=== PATIENT | female | born 1995 | race Caucasian/White ===

== ENCOUNTER 2020-06-17 16:47 | Emergency (ER) | payer OTHER, SELFPAY ==
[2020-06-17 16:58] VITALS: BP 113/67; PULSE 99; RESP 16; TEMP 37.2; O2SAT 100
--- NOTE | 2020-06-17 17:14 | ED.HA ---
HPI - Headache General Chief Complaint: Headache Stated Complaint: Migraine Time Seen by Provider: 06/17/20 17:08 Source: patient and RN notes reviewed Mode of arrival: ambulatory Limitations: no limitations History of Present Illness HPI Narrative: Patient presents today complaining of a 5-day history of migraine. Located in the frontal and occipital areas describes the pain as constant and throbbing. Patient does have history of migraines and states these current symptoms are consistent with symptoms she has had in the past. States she used to take Topamax, but no longer does. She reports a bit of nausea for which she has been taking Zofran. States she was dizzy last night but none today. Reports photophobia, but denies vision changes. Currently rates her pain 8/10. She has been taking ibuprofen, sinus medicine, Claritin, naproxen without much relief. Patient also takes 15 mg of morphine twice daily for interstitial cystitis. MD elicited complaint: migraine Related Data Home Medications Medication Instructions Recorded Confirmed cholecalciferol (vitamin D3) 50 mcg PO DAILY 06/17/20 06/17/20 [Vitamin D3] diphenhydramine HCl [Unisom 50 mg PO HS 06/17/20 06/17/20 SleepGels] gabapentin 300 mg PO BID 06/17/20 06/17/20 morphine 15 mg PO BID 06/17/20 06/17/20 varenicline [Chantix] 1 mg PO BID 06/17/20 06/17/20 Allergies Allergy/AdvReac Type Severity Reaction Status Date / Time caffeine AdvReac Palpitation Verified 06/17/20 17:07 s Review of Systems Review of Systems: Narrative: CONSTITUTIONAL: Denies body aches, fever, chills, or sweats. EYES: Denies visual changes, redness, or discharge.+ Photophobia ENT: Denies rhinorrhea, congestion, sore throat, or otalgia. CARDIOVASCULAR: Denies chest pain, palpitations, or edema. RESPIRATORY: Denies cough or dyspnea. GASTROINTESTINAL: Denies abdominal pain, vomiting, or diarrhea. + Nausea GENITOURINARY: Denies dysuria or hematuria. SKIN: Denies rash, itching, or wounds. MUSCULOSKELETAL: Denies back pain, joint pain, or myalgia. NEUROLOGIC: Denies numbness, tingling, or weakness. + Migraine PSYCH: Denies depression or anxiety. [facility] Past Medical History Medical History (Updated 06/17/20 @ 17:29 by Madalyn Dickson, [employer], ) Endometriosis Interstitial cystitis Irritable bowel syndrome Surgical History Surgical History (Updated 06/17/20 @ 17:18 by Madalyn Dickson, [facility], ) History of oophorectomy Comments At time of signature, I have reviewed and agree with nursing past medical, surgical, social and family history unless otherwise noted. Please see nursing chart for further information. There is no relevant family history pertinent to the presenting complaint Exam Narrative: Exam Narrative: GENERAL: Chronically ill-appearing, well-nourished. Mild pain distress. HEAD: Normocephalic, atraumatic. EYES: EOMI. PERRL. No redness or drainage. Conjunctivae normal. ENT: Mucous membranes pink and moist. NECK: Normal AROM. Supple. No lymphadenopathy. CHEST: No respiratory distress. Clear to auscultation. HEART: Regular rate and rhythm. No murmur appreciated. Normal peripheral pulses. EXTREMITIES: Normal range of motion. No edema. SKIN: Warm, dry, no rash. Capillary refill normal. Normal skin turgor. NEURO: No focal deficits. Alert and oriented x3. Gait steady. PSYCH: Normal affect. No signs of depression or anxiety. Course Course Emergency Course: Patient [facility], so I cannot give her any medications that would make her drowsy such as Benadryl. We will give her a dose of Toradol, prescribe Phenergan for home use, and instructed her to take some Benadryl when she gets home. 1743-patient's pain decreased to 5/10 before discharge. Vital Signs Vital signs: Vital Signs Temperature 99.0 F 06/17/20 16:58 Pulse Rate 99 06/17/20 16:58 Respiratory Rate 16 06/17/20 16:58 Blood Pressure 113/67 06/17/20 16:58
[2020-06-17] MEDS: KETOROLAC 30 MG/ML VIAL (*BKC) IM (17:20)
== END 2020-06-17 17:43 | disposition home or self-care (01) ==
PROVIDERS: Emergency Provider Nurse Practitioner
DX: G43.911 Migraine, unspecified, intractable, with status migrainosus (principal); N80.9 Endometriosis, unspecified; N30.10 Interstitial cystitis (chronic) without hematuria; Z79.891 Long term (current) use of opiate analgesic
CPT/HCPCS: 96372; 99203; G0463; J1885

== ENCOUNTER 2020-09-10 16:51 | Emergency (ER) | payer OTHER, SELFPAY ==
--- NOTE | 2020-09-10 16:53 | ED.GENADULT ---
HPI - General Adult General Chief complaint: Upper Respiratory Infection Stated complaint: sore throat Time Seen by Provider: 09/10/20 16:53 Source: patient Mode of arrival: ambulatory Limitations: no limitations History of Present Illness HPI narrative: 25-year-old female patient presents to the [facility] with complaints of sore throat that started last night. Denies any fevers, body aches or chills. Denies any coughing. Denies any ear pain or runny nose. Denies any chest pain or shortness of breath. Patient states she is scheduled to have a hysterectomy next week. Patient is concerned that she might have strep. Patient states she has not yet had her cover testing for her surgery yet. Related Data Home Medications Medication Instructions Recorded Confirmed cholecalciferol (vitamin D3) 50 mcg PO DAILY 06/17/20 09/10/20 [Vitamin D3] diphenhydramine HCl [Unisom 50 mg PO HS 06/17/20 09/10/20 SleepGels] gabapentin 300 mg PO BID 06/17/20 09/10/20 morphine 15 mg PO BID 06/17/20 09/10/20 Allergies Allergy/AdvReac Type Severity Reaction Status Date / Time caffeine AdvReac Palpitation Verified 09/10/20 17:15 s Review of Systems Review of Systems: Narrative: CONSTITUTIONAL: Denies fever, chills, or sweats. EYES: Denies visual changes, redness, or discharge. ENT: Denies rhinorrhea, congestion, positive sore throat, denies otalgia. CARDIOVASCULAR: Denies chest pain, palpitations, or edema. RESPIRATORY: Denies cough or dyspnea. GASTROINTESTINAL: Denies abdominal pain, nausea, vomiting, or diarrhea. GENITOURINARY: Denies dysuria or hematuria. SKIN: Denies rash or itching. MUSCULOSKELETAL: Denies back pain, joint pain, or myalgia. NEUROLOGIC: Denies headache, numbness, or weakness. PSYCHIATRIC: Denies anxiety or depression. [facility] Past Medical History Medical History Endometriosis Interstitial cystitis Irritable bowel syndrome Surgical History Surgical History History of oophorectomy Comments At the time of my signature I agree with nursing past medical history, surgical, social, and family history. There is no relevant family history pertinent to the presenting complaint. Exam Narrative: Exam Narrative: GENERAL: Well-appearing, well-nourished, and in no acute distress. HEAD: Normocephalic, atraumatic. EYES: PERRLA and EOMI. ENT: Nares clear, no rhinorrhea or epistaxis. Mucous membranes moist. Posterior pharynx with some erythema 1+ tonsil enlargement. There is a little bit of fluid noted behind the bilateral TMs but no erythema, no bulging present. NECK: Supple. No lymphadenopathy CHEST: Clear to auscultation. No respiratory distress. HEART: Regular rate and rhythm. No murmur heard. Normal peripheral pulses. ABDOMEN: Soft, nontender, nondistended, normal active bowel sounds. EXTREMITIES: Normal range of motion. No edema. SKIN: Warm, dry, no rash. NEURO: No focal deficits. Alert and oriented x3. Course Vital Signs Vital signs: Vital Signs Temperature 37.4 C 09/10/20 17:00 Pulse Rate 95 09/10/20 17:00 Respiratory Rate 16 09/10/20 17:00 Blood Pressure 116/69 09/10/20 17:00 Pulse Oximetry 100 09/10/20 17:00 Temperature 37.4 C 09/10/20 17:00 Pulse Rate 95 09/10/20 17:00 Respiratory Rate 16 09/10/20 17:00 Blood Pressure 116/69 09/10/20 17:00 Pulse Oximetry 100 09/10/20 17:00 Vital signs reviewed. Medical Decision Making Differential Diagnosis Differential Diagnosis: Differential diagnosis: Viral pharyngitis, pharyngitis, group A strep, infectious mononucleosis, gonococcal pharyngitis, exudative pharyngitis, oral candidiasis. Chronic allergies, postnasal drip, GERD, abscess formation, but glottitis, retropharyngeal abscess formation, or airway obstruction. Discussed with patient that her strep test today is negative. Discussed with patient that this cou
[2020-09-10 17:00] VITALS: BP 116/69; PULSE 95; RESP 16; TEMP 37.4; O2SAT 100
== END 2020-09-10 17:27 | disposition home or self-care (01) ==
PROVIDERS: Emergency Provider Nurse Practitioner Family
DX: J02.8 Acute pharyngitis due to other specified organisms (principal); Z20.828 Contact with and (suspected) exposure to other viral communicable diseases; N80.9 Endometriosis, unspecified
CPT/HCPCS: 87081; 87880; 99213; G0463

== ENCOUNTER → 2021-05-09 00:40 | Outpatient (CLI) | payer OTHER, SELFPAY ==
[2021-05-09 17:56] LABS: SARS-CoV-2 RNA PCR Negative
== END ==
PROVIDERS: PCP Family Medicine; Visit Provider Obstetrics & Gynecology
DX: Z01.812 Encounter for preprocedural laboratory examination (principal); Z20.822 Contact with and (suspected) exposure to COVID-19
CPT/HCPCS: C9803; U0003; U0005

== ENCOUNTER 2021-05-13 00:47 | Day surgery (SDC) | payer OTHER, SELFPAY ==
[2021-04-30 15:57] VITALS: BMI 17.6
--- NOTE | 2021-05-12 13:04 | WPDANESEPPF ---
Anes - Initial Pre Proc Eval Procedure: Operation Date: 05/13/21 07:30 Proposed Procedures p Laparoscopic Right Salpingo Oophorectomy - Oc Valles MD Date/Time: 05/12/21 13:04 Surgeon: Oc Valles MD Pre Op Diagnosis: cyst right ovary Patient Data Age: 26 Gender: F Height: 1.5 m Weight: 39.54 kg Allergies Allergy/AdvReac Type Severity Reaction Status Date / Time caffeine AdvReac Intermediate Palpitation Verified 04/30/21 15:19 s Penicillins AdvReac Intermediate Hallucinating/palpitations Verified 04/30/21 15:19 of heart Home Medications Medication Instructions Recorded Confirmed Type cholecalciferol (vitamin D3) 50 mcg PO DAILY 06/17/20 04/30/21 History [Vitamin D3] diphenhydramine HCl [Unisom 50 mg PO HS 06/17/20 04/30/21 History SleepGels] gabapentin 300 mg PO BID 06/17/20 04/30/21 History morphine 15 mg PO BID 06/17/20 04/30/21 History diazepam 5 mg PO DAILY 04/30/21 04/30/21 History naproxen 250 mg PO BID PRN 04/30/21 04/30/21 History ondansetron HCl 4 mg PO PRN 04/30/21 04/30/21 History phenazopyridine [Pyridium] 100 mg PO TID PRN 04/30/21 04/30/21 History Patient hx anesthesia problems: none Family hx anesthesia problems: none PMFSH Past Medical History Medical History Anxiety Asthma Chronic narcotic use Depression Endometriosis Interstitial cystitis Irritable bowel syndrome Lupus (systemic lupus erythematosus) Smoker Surgical History Surgical History History of oophorectomy Social History Social History Smoking status: Current every day smoker Tobacco type: cigarettes Additional smoking assessment comments: 1 ppd x 20 years Substance use: current Substance use type: marijuana Other substance usage details: smoke at night for insomnia,or eatable Living arrangements: with family Spiritual care concerns: No Anes - Eval Final PreProcedure Day of Procedure 05/12/21 13:04 Patient weight: thin Heart: regular rate and rhythm Lungs: clear to auscultation and normal air movement Airway: Mallampati scale class II Neurological: alert and oriented Last oral intake: >/= 8 hours ASA classification: III Emergent: no Anesthetic plan: proceed Anesthesia type and monitoring: general ETT Informed Consent: The patient's anesthetic plan and its attendant risks and benefits were discussed with the patient/family/POA. Questions were solicited and answers provided to the satisfaction of the patient/family/POA.
[2021-05-13] VITALS (10 sets, daily range): BP systolic 97–126; BP diastolic 42–90; PULSE 74–96; RESP 12–16; TEMP 36.2–36.6; O2SAT 95–100
[2021-05-13] MEDS: ACETAMINOPHEN 500 MG TABLET 1000 MG PO (06:58)
[2021-05-13] MEDS: LACTATED RINGERS 1,000 ML 30 ML IV CONT ×2 (07:00→10:47)
[2021-05-13] MEDS: KETOROLAC 15 MG/ML VIAL (*BKC) IV PUSH (07:02)
--- NOTE | 2021-05-13 07:18 | WPDHPUPDATE1 ---
History and Physical Update Update Date/Time: 05/13/21 07:18 History and Physical has been reviewed, including an updated exam of the patient. There are NO changes in the patient's condition. Risks, benefits, and alternatives have been discussed and questions answered. Patient agrees to proceed with procedure.
--- NOTE | 2021-05-13 09:34 | P.OP_ITS ---
Procedure Note - Detailed Date of Procedure 05/13/21 Pre-op Diagnosis cyst right ovary, pelvic pain, endometriosis Post-op Diagnosis same (Pelvic adhesions, colonic adhesions) Procedure Performed Right salpingo-oophorectomy and adhesiolysis -45 minutes Surgeon Oc Valles MD Findings Adhesions of colon to the abdominal wall in 2 areas. One at the area of the cecum and the other in the area of the sigmoid colon. There was dense adhesions between the ovary and the pelvic sidewall overlying the ureter. Description of Procedure Patient was taken the operating room. She has prepped and draped in the dorsal lithotomy position after induction general anesthesia. A 5 mm skin incision was made in the left upper quadrant the abdomen and a 5 mm trocar was inserted the intra-abdominal cavity under direct visualization the scope. Pneumoperitoneum was achieved. An 11 mm incision was made with scalp the left lower quadrant of the abdominal skin. 11 mm port trocar was inserted under direct visualization of the scope. In an identical fashion a 5 mm trocar was inserted the infrau mbilical area. 45 minutes of adhesiolysis was performed. Adhesiolysis involving the right ovary and the pelvic sidewall. He has lysis also involved 2 areas on the colon. One areas at the sigmoid colon. One area was in the area the cecum. There were adherent to the anterior abdominal wall. Cautery and sharp dissection were used to take down these adherent areas. The ovary was densely adherent to the pelvic sidewall over the ureter ureter. The ureter was dissected out carefully. Ureterolysis was performed for formed from the pelvic brim down to the uterine artery. The artery was from the pelvic sidewall with careful sharp, blunt dissection and using cautery. When the ovary fallopian tube fully amputated a were placed in endobag and taken out the left lower quadrant trocar site. The pelvis was irrigated with copious amounts of normal saline. There was an area where spreading of the cautery adhesions near the cecum spread to the surface of the colon. It appears to be very superficial and may not affect the colon at all. Dr. Catherine was present at this time to examine the area agreed that it was inconsequential. The procedure was terminated. The trocars removed. The pneumoperitoneum was reduced. The skin was closed with subcuticular 4 Monocryl, Dermabond. She tolerated the procedure well. She is taking covered stable condition. Sponge lap and needle counts were correct x2. Estimated Blood Loss 75 Drains No Packing No Pathology yes Complications No immediate complications Condition stable Disposition PACU
[2021-05-13] MEDS: fentaNYL CITRATE INJ (*CRX) 100 MCG/2 ML VIAL 25 MCG IV PUSH ×4 (09:50→09:59)
[2021-05-13] MEDS: HYDROmorphone HCL INJ (*CRX) 1 MG/ML SYR 0.25 MG IV PUSH ×8 (10:03→10:46)
--- NOTE | 2021-05-13 10:16 | SUR.PHASEI ---
1015; PT DOZING IN INTERVALS. P,W,D. RESP EVEN UNLABORED. AWAKENS EASILY. C/O PAIN 10/10 THEN DOZES OFF. PAIN MEDS GIVEN PRN. FLACC SCORE 0-1
--- NOTE | 2021-05-13 10:38 | SUR.PHASEI ---
PT DOZING IN INTERVALS. AWAKENS SELF AND STATES , IT HURTS . RATES /. PAIN MEDS GIVEN PRN. RESP EVEN UNLABORED. PT RELAXED
--- NOTE | 2021-05-13 11:01 | SUR.PHASEI ---
PT SLEEPY. AWAKENS EASILY STATES SHE IS READY TO HAVE A DRINK AND SIT IN [facility]CL[facility]ER.
[2021-05-13] MEDS: oxyCODONE HCL (*CRX) 5 MG TAB IR PO (11:33)
== END 2021-05-13 11:55 | disposition home or self-care (01) ==
PROVIDERS: Visit Provider Obstetrics & Gynecology
PROC: (CPT 49320; principal; 2021-05-13 07:30)
DX: N83.01 Follicular cyst of right ovary (principal); N73.6 Female pelvic peritoneal adhesions (postinfective); R10.2 Pelvic and perineal pain; F41.8 Other specified anxiety disorders; K58.9 Irritable bowel syndrome, unspecified; M32.9 Systemic lupus erythematosus, unspecified; Z79.891 Long term (current) use of opiate analgesic; F17.210 Nicotine dependence, cigarettes, uncomplicated; F12.90 Cannabis use, unspecified, uncomplicated
CPT/HCPCS: 58661; 88305; A9270; J1100; J1170; J1885; J2250; J2704; J2710; J3010; J7030; J7120

== ENCOUNTER 2022-10-26 08:53 | Outpatient (CLI) | payer OTHER, SELFPAY | END 2022-10-26 08:54 | disposition home or self-care (01) | LOC: ANHBWCAUD 08:54 | PROVIDERS: PCP Hospitalist | DX: H69.83 Other specified disorders of Eustachian tube, bilateral (principal); H90.42 Sensorineural hearing loss, unilateral, left ear, with unrestricted hearing on the contralateral side; H90.11 Conductive hearing loss, unilateral, right ear, with unrestricted hearing on the contralateral side | CPT/HCPCS: 92557; 92567 ==

== ENCOUNTER 2023-01-18 10:01 | Outpatient (CLI) | payer OTHER, SELFPAY | END 2023-01-18 10:02 | disposition home or self-care (01) | LOC: ANHBWCAUD 10:02 | PROVIDERS: PCP Hospitalist | DX: H92.03 Otalgia, bilateral (principal); H90.0 Conductive hearing loss, bilateral | CPT/HCPCS: 92557; 92567 ==

== ENCOUNTER 2024-05-06 15:08 | Emergency (ER) | payer OTHER, SELFPAY ==
--- NOTE | 2024-05-06 15:17 | ED.DENTAL ---
HPI - Dental/Oral General Chief complaint: Dental/Oral Stated complaint: Toothache Time Seen by Provider: 05/06/24 15:17 Source: patient, RN notes reviewed and old records reviewed Mode of arrival: ambulatory Limitations: no limitations History of Present Illness HPI Narrative: 29-year-old [facility] complaint that dental pain. Patient states that she has been calling local dental school every morning at 8:00 a.m. in an attempt to get in for an appointment. Patient reports that she is on a 2 year waiting list for an appointment at the dental school. Patient has been attempting to treat at home with ibuprofen and orajel with little to no relief. Patient reports that the pain initially started on left lower jaw but now her entire mouth is diffusely painful. Patient currently rates pain 10/10, patient tearful in exam room. Patient denies nausea, fever, cough, ear pain. Patient able to tolerate fluids by mouth. Related Data Home Medications Medication Instructions Recorded Confirmed cholecalciferol (vitamin D3) 50 50 mcg PO DAILY 06/17/20 05/06/24 mcg (2,000 unit) capsule (Vitamin D3) diazepam 5 mg tablet 5 mg PO DAILY 04/30/21 05/06/24 estradiol 1 mg tablet 1 mg PO DAILY 05/06/24 05/06/24 ibuprofen 800 mg tablet 800 mg PO Q6-8H PRN Pain 05/06/24 05/06/24 rizatriptan 10 mg tablet 10 mg PO PRN PRN Migraine Headache 05/06/24 05/06/24 Allergies Allergy/AdvReac Type Severity Reaction Status Date / Time caffeine AdvReac Intermediate Palpitation Verified 05/06/24 15:19 s Penicillins AdvReac Intermediate Hallucinati Verified 05/06/24 15:19 ng/palpitat ions Review of Systems Review of Systems: All systems reviewed & are unremarkable except as noted in HPI and below Constitutional: Constitutional: Reports as per HPI and Reports headache(s) Eyes: Eyes: Reports no additional eye complaints ENT: Reports as per HPI, Reports dental pain, Reports facial pain and Denies sore throat Cardiovascular: Cardiovascular: Reports no additional cardiovascular complaints, Denies chest pain and Denies dyspnea Respiratory: Respiratory: Reports no additional respiratory complaints, Denies cough and Denies dyspnea Musculoskeletal: Musculoskeletal: Reports no additional musculoskeletal complaints Neurologic: Reports system reviewed and no additional complaints, except as documented Psychiatric: Psychiatric: Reports no additional psychiatric complaints PMFSH Past Medical History Medical History Anxiety Asthma Chronic narcotic use Depression Endometriosis Interstitial cystitis Irritable bowel syndrome Lupus (systemic lupus erythematosus) Smoker Surgical History Surgical History History of oophorectomy Social History Social History Smoking status: Current every day smoker Tobacco type: cigarettes Additional smoking assessment comments: 1 ppd x 20 years Substance use: current Substance use type: marijuana Other substance usage details: smoke at night for insomnia,or eatable Living arrangements: with family Spiritual care concerns: No Comments At the time of my signature, I reviewed and agree with the nursing past medical, surgical, social, and family history. There is no relevant family history pertinent to the patient complaint. Exam Const: General: cooperative, healthy appearing, comfortable, no acute distress, alert and well nourished Nutritional Appearance: well nourished Orientation/consciousness: patient oriented x3 Limitations: no limitations HENMT: Head: normal to inspection Ears: external ears normal Face/Nose/Sinus: Normal external nose present, Normal nares present, normal facial exam, No erythema and No edema Face and sinus: normal facial exam, no erythema and no edema Mouth: Yes moist mucous membranes, No drooling and Yes malodorous nichole
[2024-05-06 15:22] VITALS: BP 104/72; PULSE 88; RESP 16; TEMP 37.3; O2SAT 99
[2024-05-06 15:33] VITALS: BP 104/72; PULSE 88; RESP 16; TEMP 37.3; O2SAT 99
== END 2024-05-06 15:42 | disposition home or self-care (01) ==
PROVIDERS: Emergency Provider Nurse Practitioner Family; PCP Hospitalist
DX: K02.9 Dental caries, unspecified (principal); K04.7 Periapical abscess without sinus; F17.210 Nicotine dependence, cigarettes, uncomplicated; F12.90 Cannabis use, unspecified, uncomplicated; J45.909 Unspecified asthma, uncomplicated; N80.9 Endometriosis, unspecified; M32.9 Systemic lupus erythematosus, unspecified; F41.9 Anxiety disorder, unspecified
CPT/HCPCS: 99213; G0463